=== PATIENT | female | born 1970 | race Native Hawaiian/Other Pacific Islander ===

== ENCOUNTER 2016-09-01 23:43 | Emergency (ER) | payer MEDICAID, MEDICARE ==
[~2016-09-01] VITALS: Ht 172.7 cm; Wt 101.2 kg
[2016-09-02 00:10] VITALS: BP_SYST 123
[2016-09-02] MEDS ORDERED: HYDROcodone/ACETAMIN 7.5-325 MG TAB PO ONE (00:45)
[2016-09-02 01:00] VITALS: BP_SYST 120
== END 2016-09-02 01:00 | disposition home or self-care (01) ==
LOC: SED 23:43
DX: S76.111A Strain of right quadriceps muscle, fascia and tendon, initial encounter (principal); Z88.8 Allergy status to other drugs, medicaments and biological substances; X58.XXXA Exposure to other specified factors, initial encounter; Y93.89 Activity, other specified; Y92.89 Other specified places as the place of occurrence of the external cause; Y99.8 Other external cause status
CPT/HCPCS: 99283